=== PATIENT | female | born 1950 | race Caucasian/White ===

== ENCOUNTER 2021-02-21 12:00 | Emergency (ER) | payer MEDICARE ==
[2021-02-21] MEDS ORDERED: Morphine 10 MG/ML VIAL ONE (12:13)
[2021-02-21] MEDS ORDERED: Ibuprofen 200 MG TAB ONE (12:13)
[2021-02-21] MEDS ORDERED: Morphine 4 MG/ML VIAL ONE (12:14)
== END 2021-02-21 13:00 | disposition home or self-care (01) ==
LOC: BURERS 12:00
DX: S42.342A Displaced spiral fracture of shaft of humerus, left arm, initial encounter for closed fracture (principal); S80.211A Abrasion, right knee, initial encounter; S80.812A Abrasion, left lower leg, initial encounter; I10 Essential (primary) hypertension; E78.5 Hyperlipidemia, unspecified; E78.00 Pure hypercholesterolemia, unspecified; E78.1 Pure hyperglyceridemia; Z87.891 Personal history of nicotine dependence; Z79.899 Other long term (current) drug therapy; W10.9XXA Fall (on) (from) unspecified stairs and steps, initial encounter
CPT/HCPCS: 24500; 96372; J2270